=== PATIENT | male | born 1990 | race Caucasian/White ===

== ENCOUNTER 2020-07-25 13:17 | Outpatient (REF) | payer BC, SELFPAY ==
[2020-07-25 21:30] LABS: ALT 53 U/L (16-63); AST 12 U/L (15-37); Alkaline Phosphatase 44 U/L (46-116); Anion Gap 8.7 mmol/L (3-11); BUN 11 mg/dL (7-18); Bilirubin, Total 0.4 mg/dL (0.2-1.0); CO2 28.3 mmol/L (21.0-32.0); CREATININE 1.04 mg/dL (0.70-1.30); Calcium 9.1 mg/dL (8.5-10.1); Chloride 105 mmol/L (98-107); Glucose 100 mg/dL (74-106); Potassium 4.6 mmol/L (3.5-5.1); Sodium 142 mmol/L (136-145); TSH (W/Ref FT4) 1.55 uIU/mL (0.36-3.74); Total Protein 6.9 g/dL (6.4-8.2)
[2020-07-28 07:03] LABS: Vitamin D 25 Total 36.9 ng/ml (30-100)
== END 2020-07-25 13:37 ==
LOC: NCHCN 13:17
PROVIDERS: PCP Nurse Practitioner Family; Visit Provider Nurse Practitioner Psychiatric/Mental Health
DX: F41.1 Generalized anxiety disorder (principal)
CPT/HCPCS: 80053; 82306; 84443

== ENCOUNTER 2024-04-24 18:47 | Observation (INO) | payer SELFPAY ==
[2024-04-24] VITALS (31 sets, daily range): BP systolic 78–135; BP diastolic 53–100; PULSE 86–121; RESP 11–25; TEMP 35.6–36.3; O2SAT 94–98
--- NOTE | 2024-04-24 18:45 | RT.EKG_ITS ---
APPROVED REPORT Exam: Resting ECG Reason for Exam: abd pain Patient Location: E HR:71 bpm ECG Measurements Heart Rate 71 AXIS NH 129 P 83 QRSd 98 QRS 43 QT 361 T 76 QTc 393 Conclusion Sinus rhythm...normal P axis, V-rate 60- 99 Low voltage, extremity leads...all extremity leads <0.5mV Narrow complex normal sinus rhythm at a rate of 71. Normal axis. Intervals within normal limits. L ow voltage in limb leads. No ST segment abnormalities. T wave inversion in aVL. No prior for sourav rison. No acute injury pattern.
--- NOTE | 2024-04-24 19:00 | DI.CT_ITS ---
Exam(s) CT ABDOMEN PELVIS W EXAM: CT ABDOMEN PELVIS W CLINICAL HISTORY: RLQ Abd pain, N/V. TECHNIQUE: Imaging Protocol: Axial computed tomography images with coronal and sagittal reformatted images were created and reviewed CONTRAST MATERIAL: Intravenous: Omnipaque 350 Contrast volume:100 ml Oral: yes / COMPARISON: No exams were available for comparison FINDINGS: ABDOMEN and PELVIS: Lung Bases: Ground-glass infiltrate left lower lobe pneumonitis. Effusion. Liver: Normal density. No suspicious mass. Gallbladder and biliary tract: No radiodense calculus. No biliary dilation. Pancreas: Normal density. No abnormal calcifications or inflammatory process. No evidence of mass. Spleen: Normal. Kidneys: Normal size, contour and axis. No radiodense stones. No obstructive uropathy. No suspicious masses seen. Adrenal glands: No masses seen. Vasculature: Abdominal aorta non-dilated. Soft tissues: Unremarkable. Bladder: No gross wall thickening. No calculi.No focal mass. Bowel: No obstruction. Appendix is dilated to 1.5 cm, shows surrounding inflammation. There is smal l amount of free fluid in the low pelvis. No perforation or abscess. No visible appendicoliths.: Ne matthew free of stool. Peritoneal cavity: No ascites. No focal collection. No mesenteric inflammatory response. Bones: Unremarkable for age. Reproductive organs: Unremarkable. Lymph nodes: No pathologically enlarged lymph nodes. IMPRESSION:: Findings consistent with acute uncomplicated appendicitis. RADIATION DOSE DELIVERED: 1,656.75mGy.cm Total DLP DATA REPOSITORY: All CT scans at this facility are submitted to the National Radiology Data Registry (NRDR) Dose Index Registry (DIR) with the [employer] (A[employer]). RADIATION OPTIMIZATION: All CT scans at this facility use at least one of these dose optimization te chniques: automated exposure control; mA and/or kV adjustment per patient size (includes targeted exa ms where dose is matched to clinical indication); or iterative reconstruction.
[2024-04-24] MEDS: Normal Saline 1,000 ML 1000 ML IV (19:05)
[2024-04-24 19:11] LABS: Abs Immature Grans 0.05 10^3/uL (0.0-0.06); Absolute Basophil Count 0.03 10^3/uL (0.0-0.2); Absolute Eosinophil Count 0.01 10^3/uL (0.0-0.7); Absolute Monocyte Count 0.71 10^3/uL (0.1-0.8); Basophils % 0.2 %; Eosinophils % 0.1 %; HCT 46.5 % (40.0-50.0); HGB 16.5 g/dL (13.5-17.5); Immature Grans % 0.4 %; Lymphocytes % 18.7 %; MCH 30.6 pg (27.0-33.0); MCHC 35.5 % (32.0-36.0); MCV 86 fL (80-95); MPV 9.6 fL (8.0-11.0); Monocytes % 5.4 %; Neutrophils % 75.2 %; Platelet Count 348 10^3/uL (130-400); RDW 11.8 % (11.8-14.1); WBC 13.13 10^3/uL (4.4-10.8)
[2024-04-24 19:12] LABS: Absolute Lymphocyte Count 2.46 10^3/uL (1.2-3.4); Absolute Neutrophil Count 9.87 10^3/uL (1.2-6.7)
--- NOTE | 2024-04-24 19:12 | ED.GENADUL_ITS ---
Discharge Plan Disposition Patient Disposition: Admit to [facility] Condition: Stable Discharge Details Clinical Impression: Acute appendicitis Admit Date/Time: 04/24/24 20:43 Admit Provider: Kraig Chamberlain Attending Provider: Kraig Chamberlain Primary Care Provider: Unknown,Unknown ED Provider: Jessica Feliz [facility] General Mode of arrival: ambulatory . Date/Time Provider Initiated Documentation: 04/24/24 19:00 . Limitations to Documentation: no limitations . Information obtained by: patient, RN notes reviewed and old records reviewed . HPI Narrative: 33-year-old male presents to the ER with a chief complaint of right lower quadrant abdominal pain, nausea vomiting. In triage he was diaphoretic pale lightheaded and dizzy and near syncopal blood pressure was 78/53, he reports that the pain began at 930 this morning. He is complaining of pressure to his lower abdomen, pain in his right testicle, no swelling or signs of torsion. Generalized abdominal pain with palpation, positive guarding. No masses palpated. No significant past medical history or surgeries reported no allergies to medications. In the room patient's blood pressure is improved to 117/64, heart rate is 85 O2 sat is 97% on room air, he is alert and oriented denies any trauma or any other associated symptoms or concerns. Related Data Home Medications Medication Instructions Recorded Confirmed dextroamphetamine-amphetamine 30 30 mg PO DAILY 04/24/24 04/24/24 mg tablet (Adderall) duloxetine 30 mg capsule,delayed 30 mg PO DAILY 04/24/24 04/24/24 release duloxetine 60 mg capsule,delayed 60 mg PO DAILY 04/24/24 04/24/24 release lamotrigine 100 mg tablet 100 mg PO DAILY 04/24/24 04/24/24 lorazepam 2 mg tablet (Ativan) 2 mg PO DAILY PRN 04/24/24 04/24/24 ziprasidone HCl 40 mg capsule 40 mg PO DAILY 04/24/24 04/24/24 (Geodon) Allergies Allergy/AdvReac Type Severity Reaction Status Date / Time No Known Allergies Allergy Unverified 04/24/24 18:58 General Stated Complaint: Abd Prob MARIS: 2 Review of Systems All systems reviewed & are unremarkable except as noted in HPI and below Constitutional Constitutional: Reports as per HPI, Reports body ache(s) and Reports chills Cardiovascular Cardiovascular: Denies chest pain and Denies dyspnea Respiratory Respiratory: Denies dyspnea Gastrointestinal Gastrointestinal: Reports as per HPI and Reports abdominal pain Genitourinary Genitourinary: Reports as per HPI, Reports difficulty urinating, Reports flank pain and Reports testicular pain Exam Narrative Exam Narrative: Constitutional: Alert and oriented x3. See HPI, patient presents in moderate distress, pale, complaining of severe abdominal pain and bloating as he describes as pressure. Had near syncopal episode upon arrival in triage. Head: Normocephalic, no trauma. Eyes: Pupils PERRL, Red reflex noted, EOM's intact. Eyelids symmetrical without lesions, discharge, or swelling. ENT: Bilateral TM's WNL, External ear normal to inspection, no mastoid TTP, swelling, or erythema, Nasal turbinates WNL, no nasal discharge. Normal dentition, Posterior pharynx WNL, no exudate. Chest: RRR, Normal S1, S2, distal pulses intact. Resp: Lungs clear to auscultation bilaterally, no wheezes, rales, or rhonchi. Abdomen: Rigid, generalized diffuse tenderness with palpation, positive guarding, : No palpable hernias or masses, no evidence of testicular torsion, no tenderness, erythema, or swelling noted to scrotum, Musculoskeletal: Unable to assess gait, Moves all 4 extremities without difficulty. Skin: No suspicious rashes or lesions. Capillary refill less than 2 sec. Neurologic: Cranial nerves II-XII intact. Alert and oriented x 3. Motor: No deficits noted. Sensory: Intact bilaterally all 4 extremities. Hematologic/Lymphatic: No ecchymosis, no lymphadenopathy. Course Vital Signs Vital signs: Vital Signs Temperature 36 C L 04/24/24 18:50 Pulse 86 04/24/24 18:50 Respiratory Rate 04/24/24 18:50 Blood Pressure 78/53 L 04/24/24 18:50 Pulse Oximetry 98 04/24/24 18:50 Temperature 36 C L 04/24/24 18:50 Temperature Source Temporal Artery Scan 04/24/24 18:50 Pulse 86 04/24/24 18:50 Respiratory Rate 04/24/24 18:50 Respiratory Effort Normal 04/24/24 18:53 Blood Pressure 78/53 L 04/24/24 18:50 Pulse Oximetry 98 04/24/24 18:50 Oxygen Delivery Method Room Air 04/24/24 18:50 Oxygen Flow Rate 0 04/24/24 18:50 Pain Level 8 04/24/24 18:50 Lab/Test Results Lab/Test Results: Laboratory Tests Range/Units 04/24/24 19:05 WBC (4.4-10.8) 10^3/uL 13.13 H RBC (4.36-5.78) 10^6/uL 5.40 Hgb (13.5-17.5) g/dL 16.5 Hct (40.0-50.0) % 46.5 MCV (80-95) fL 86 MCH (27.0-33.0) pg 30.6 MCHC (32.0-36.0) % 35.5 RDW (11.8-14.1) % 11.8 Plt Count (130-400) 10^3/uL 348 MPV (8.0-11.0) fL 9.6 Immature Gran % % 0.4 Neutrophils % % 75.2 Lymphocytes % % 18.7 Monocytes % % 5.4 Eosinophils % % 0.1 Basophils % % 0.2 Nucleated RBC % (0.0-0.3) % 0.0 Absolute Neutrophils (1.2-6.7) 10^3/uL 9.87 H Absolute Lymphocytes (1.2-3.4) 10^3/uL 2.46 Absolute Monocytes (0.1-0.8) 10^3/uL 0.71 Absolute Eosinophils (0.0-0.7) 10^3/uL 0.01 Absolute Basophils (0.0-0.2) 10^3/uL 0.03 Medical Decision Making 33-year-old male presents to the ER with a chief complaint of right lower quadrant abdominal pain, nausea vomiting. In triage he was diaphoretic pale lightheaded and dizzy and near syncopal blood pressure was 78/53, he reports that the pain began at 930 this morning. He is complaining of pressure to his lower abdomen, pain in his right testicle, no swelling or signs of torsion. Generalized abdominal pain with palpation, positive guarding. No masses palpated. No significant past medical history or surgeries reported no allergies to medications. In the room patient's blood pressure is improved to 117/64, heart rate is 85 O2 sat is 97% on room air, he is alert and oriented denies any trauma or any other associated symptoms or concerns. Workup ordered including CBC CMP, lipase, urinalysis CT abdomen pelvis with contrast, liter of fluid and 50 of fentanyl and 4 Zofran. Differential diagnosis includes but not limited to UTI, sepsis, surgical abdomen, appendectomy, kidney stone, testicular torsion however no torsion noted on physical exam. Informed by administrative staff supervisor after the initial 50 mcg of fentanyl that patient is still complaining of diffuse abdominal pain. An additional 25 mics for a total of 75 mcg of fentanyl IV ordered. On patient reevaluation he is complaining of chills, and rigors. Lactate, BC x 2 ordered, Type and screen and Pt, INR, PTT added on to labs. call center rn Surgery paged 1999. Spoke with radiologist with [facility] Dr. Kraig Contreras who reports acute appendicitis measuring 15 mm with wall thickening and inflammatory fat stranding and fluid. Please see official report. Will repage surgery. 2041: Spoke with Dr. Chamberlain with general surgery discussed CT results he does not recommend Zosyn to be hung at this time. I did inform administrative staff supervisor and infusion was stopped. Discussed CT results with patient and family who verbalized understanding. I did discuss n.p.o. status patient last ate a meal last night. He did have sips of water prior to arrival. He does appear more comfortable at this time. Patient to be admitted into the care of general surgery, pending bed placement at this time. Instructed on plan of care he verbalized understanding. This text was generated using [employer] dictation system, please disregard any oddities of phrase or misspellings. Imaging Data Radiologic Study: Imaging: CT Scan Radiologist's impression: [facility] Radiology report: TECHNIQUE: Imaging protocol: Computed tomography of the abdomen and pelvis with contrast. Contrast material: OMNIPAQUE 350; Contrast volume: 100 ml; Contrast route: INTRAVENOUS (IV); COMPARISON: No relevant prior studies available. FINDINGS: Lungs: Minimal ground-glass opacities within the left lower lobe, likely areas of minimal pneumonitis. Diaphragm: Small size hiatal hernia. Liver: Normal. Gallbladder and bile ducts: Normal. Pancreas: Normal. Spleen: Normal. Adrenal glands: Normal. No mass. Kidneys and ureters: Nonobstructive right nephrolithiasis. Stomach and bowel: Normal. Appendix: Appendix abnormal, measuring 15 mm in maximum diameter, with wall thickening and adjacent associated inflammatory fat stranding and fluid. Appendix located in conventional position. No perforation or abscess. Intraperitoneal space: Unremarkable. No free air. No significant fluid collection. Vasculature: Unremarkable. No abdominal aortic aneurysm. Lymph nodes: Unremarkable. No enlarged lymph nodes. Urinary bladder: Unremarkable as visualized. Reproductive: Unremarkable as visualized. Bones/joints: No acute abnormality. Soft tissues: Normal. IMPRESSION: 1. Acute appendicitis, without evidence of perforation or abscess. 2. Minimal ground-glass opacities within the left lower lobe, likely areas of minimal pneumonitis. Thank you for allowing us to participate in the care of your patient. Dictated and Authenticated by: Kraig Contreras MD 04/24/2024 8:29 PM Eastern Time ([place] & [place]) Lab Data Lab results reviewed: Yes I reviewed the patient's lab results. Labs: 04/24/24 19:53 Blood Blood Culture - Pending 04/24/24 19:53 Blood Blood Culture - Pending Laboratory Tests Range/Units 04/24/24 04/24/24 19:03 19:05 WBC (4.4-10.8) 10^3/uL 13.13 H RBC (4.36-5.78) 10^6/uL 5.40 Hgb (13.5-17.5) g/dL 16.5 Hct (40.0-50.0) % 46.5 MCV (80-95) fL 86 MCH (27.0-33.0) pg 30.6 MCHC (32.0-36.0) % 35.5 RDW (11.8-14.1) % 11.8 Plt Count (130-400) 10^3/uL 348 MPV (8.0-11.0) fL 9.6 Immature Gran % % 0.4 Neutrophils % % 75.2 Lymphocytes % % 18.7 Monocytes % % 5.4 Eosinophils % % 0.1 Basophils % % 0.2 Nucleated RBC % (0.0-0.3) % 0.0 Absolute Neutrophils (1.2-6.7) 10^3/uL 9.87 H Absolute Lymphocytes (1.2-3.4) 10^3/uL 2.46 Absolute Monocytes (0.1-0.8) 10^3/uL 0.71 Absolute Eosinophils (0.0-0.7) 10^3/uL 0.01 Absolute Basophils (0.0-0.2) 10^3/uL 0.03 PT (9.1-11.1) sec 10.5 INR (0.9-1.1) 1.0 APTT (23.6-32.8) sec 24.3 Sodium (136-145) mmol/L 139 Potassium (3.5-5.1) mmol/L 3.8 Chloride (98-107) mmol/L 102 Carbon Dioxide (21.0-32.0) mmol/L 27.0 Anion Gap (3-11) mmol/L 10.0 BUN (7-18) mg/dL 16 Creatinine (0.70-1.30) mg/dL 1.7 H Est GFR (CKD-EPI 2020) (mL/min/1.73m2) 53.91 Glucose (74-106) mg/dL 143 H Calcium (8.5-10.1) mg/dL 9.1 Magnesium (1.8-2.4) mg/dL 1.6 L Total Bilirubin (0.2-1.0) mg/dL 0.6 AST (15-37) U/L 15 ALT (16-63) U/L 53 Alkaline Phosphatase (46-116) U/L 54 Total Protein (6.4-8.2) g/dL 7.9 Albumin (3.4-5.0) g/dL 4.2 Lipase (16-77) U/L 26 Quality:[facility] Related Social Needs: No Data to Display Critical Care Time Critical Care Time Critical Care Time: Yes Total Critical Care Time: 45 Attestation: I spent greater than 35 minutes addressing this patient's acute life threatening illness. This time was spent engaged in actions directly related to the patient's care. Failure to initiate these interventions would have likely resulted in clinically significant or life threatening deterioration in the patients condition. PFSH All Active Problems (Updated 04/24/24 @ 20:43 by Jessica Feliz NP) Acute appendicitis (Acute) Social History Smoking risk assessment performed?: No Housing: apartment
[2024-04-24] MEDS: Ondansetron 4 MG/2 ML VIAL IVP ×2 (19:16→22:26)
[2024-04-24] MEDS: fentaNYL 100 MCG/2 ML VIAL 50 MCG IVP (19:16)
[2024-04-24] MEDS: Omnipaque 350 MG/ML 100 ML BTL IJ (19:24)
[2024-04-24 19:25] LABS: ALT 53 U/L (16-63); AST 15 U/L (15-37); Albumin 4.2 g/dL (3.4-5.0); Alkaline Phosphatase 54 U/L (46-116); BUN 16 mg/dL (7-18); Bilirubin, Total 0.6 mg/dL (0.2-1.0); CREATININE 1.7 mg/dL (0.70-1.30); Calcium 9.1 mg/dL (8.5-10.1); Chloride 102 mmol/L (98-107); Estimated GFR 53.91 (mL/min/1.73m2); Glucose 143 mg/dL (74-106); Lipase 26 U/L (16-77); Magnesium 1.6 mg/dL (1.8-2.4); Potassium 3.8 mmol/L (3.5-5.1); Sodium 139 mmol/L (136-145); Total Protein 7.9 g/dL (6.4-8.2)
[2024-04-24] MEDS: Normal Saline - Diluent 50 ML VIAL IJ (19:26)
[2024-04-24] MEDS: fentaNYL 100 MCG/2 ML VIAL 25 MCG IVP (19:53)
[2024-04-24] MEDS: PIPERACILLIN/TAZO 3.375 GM in Normal Saline 50 ML IVPB (20:05)
[2024-04-24] MEDS: Normal Saline Flush 10 ML SYR IVP ×2 (20:05→23:26)
[2024-04-24 20:10] LABS: PTT Activated 24.3 sec (23.6-32.8); Prothrombin Time 10.5 sec (9.1-11.1)
--- NOTE | 2024-04-24 20:29 | DI.[facility]_ITS ---
Addendum created by Kraig Contreras MD on 04/24/2024 8:33:13 PM EDT: THIS REPORT CONTAINS FINDINGS THAT MAY BE CRITICAL TO PATIENT CARE. The findings were verbally communicated by me to MAXINE SPARKS via telephone conference at 8:33 PM EDT on 04/24/2024. The findings were acknowledged and understood. Initial report created on 04/24/2024 8:29:20 PM EDT: PROCEDURE INFORMATION: Exam: CT Abdomen And Pelvis With Contrast Exam date and time: 04/24/2024 7:28 PM Age: 33 years old Clinical indication: Abdominal pain; Localized; Right lower quadrant (rlq) TECHNIQUE: Imaging protocol: Computed tomography of the abdomen and pelvis with contrast. Contrast material: OMNIPAQUE 350; Contrast volume: 100 ml; Contrast route: INTRAVENOUS (IV); COMPARISON: No relevant prior studies available. FINDINGS: Lungs: Minimal ground-glass opacities within the left lower lobe, likely areas of minimal pneumonitis. Diaphragm: Small size hiatal hernia. Liver: Normal. Gallbladder and bile ducts: Normal. Pancreas: Normal. Spleen: Normal. Adrenal glands: Normal. No mass. Kidneys and ureters: Nonobstructive right nephrolithiasis. Stomach and bowel: Normal. Appendix: Appendix abnormal, measuring 15 mm in maximum diameter, with wall thickening and adjacent associated inflammatory fat stranding and fluid. Appendix located in conventional position. No perforation or abscess. Intraperitoneal space: Unremarkable. No free air. No significant fluid collection. Vasculature: Unremarkable. No abdominal aortic aneurysm. Lymph nodes: Unremarkable. No enlarged lymph nodes. Urinary bladder: Unremarkable as visualized. Reproductive: Unremarkable as visualized. Bones/joints: No acute abnormality. Soft tissues: Normal. IMPRESSION: 1. Acute appendicitis, without evidence of perforation or abscess. 2. Minimal ground-glass opacities within the left lower lobe, likely areas of minimal pneumonitis. Dictated and Authenticated by: Kraig Contreras MD. Ordering:CLEM Lopez MD
--- NOTE | 2024-04-24 20:46 | W.SURGCON ---
Date of service: 04/24/24 Time of Service: 20:47 Assessment and Plan Assessment and plan (1) Acute appendicitis: Status: Acute Assessment and plan: 33 yo man with acute appendicitis by history and radiographically. HD stable per report and without diffuse peritonitis. CT shows no evidence of perforation. PLAN: Observation, IVF and IV Abx Laparoscopic Appendectomy in the AM History of Present Illness Narrative: HPI per ED provider - pain started this morning. Worsening. RLQ. PFSH All Active Problems (Updated 04/24/24 @ 20:43 by Jessica Feliz NP) Acute appendicitis (Acute) Social History Smoking risk assessment performed?: No Exam Narrative Exam Narrative: Per ED provider Vitals: Stable after resuscitation and pain medication Gen: Nontoxic but uncomfortable Abdomen: Soft, but focally tender RLQ Results Last Vital Signs Temp 96.8 F L 04/24/24 18:50 Pulse 114 H 04/24/24 19:52 Resp 16 04/24/24 19:52 BP 121/100 H 04/24/24 19:52 Pulse Ox 98 04/24/24 19:52 Labs 04/24/24 19:05 04/24/24 19:05 Labs: Laboratory Results - last 24 hr 04/24/24 04/24/24 19:03 19:05 WBC 13.13 H RBC 5.40 Hgb 16.5 Hct 46.5 MCV 86 MCH 30.6 MCHC 35.5 RDW 11.8 Plt Count 348 MPV 9.6 Immature Gran % 0.4 Neutrophils % 75.2 Lymphocytes % 18.7 Monocytes % 5.4 Eosinophils % 0.1 Basophils % 0.2 Nucleated RBC % 0.0 Absolute Neutrophils 9.87 H Absolute Lymphocytes 2.46 Absolute Monocytes 0.71 Absolute Eosinophils 0.01 Absolute Basophils 0.03 PT 10.5 INR 1.0 APTT 24.3 Sodium 139 Potassium 3.8 Chloride 102 Carbon Dioxide 27.0 Anion Gap 10.0 BUN 16 Creatinine 1.7 H Est GFR (CKD-EPI 2020) 53.91 Glucose 143 H Calcium 9.1 Magnesium 1.6 L Total Bilirubin 0.6 AST 15 ALT 53 Alkaline Phosphatase 54 Total Protein 7.9 Albumin 4.2 Lipase 26
[2024-04-24] MEDS: Ketorolac 15 MG/ML VIAL IVP (21:51)
[2024-04-24] MEDS: ACETAMINOPHEN 1,000 MG/100 ML BTL 400 MG IVPB (21:52)
[2024-04-24] MEDS: MORPHine 2 MG/ML SYR IVP ×2 (22:22→23:25)
[2024-04-24] MEDS: Lactated Ringers 1,000 ML 135 ML IV (22:31)
[2024-04-24 22:54] LABS: Bilirubin Negative (Negative); Blood Trace-intact (Negative); Clarity Clear (Clear); Glucose Negative (Negative); Ketones 40 mg/dL (Negative); Leukocyte Esterase Negative (Negative); Nitrite Negative (Negative); Specific Gravity <= 1.005 (1.005-1.025); Urobilinogen 0.2 mg/dL (Up to 0.2)
[2024-04-24 23:06] LABS: Bacteria Rare HPF (Negative); C & S Indicated? No; Casts Negative LPF (Negative); Crystals Negative HPF (Negative); Epithelial Cells Negative HPF (Negative); Mucus Negative (Negative); RBC Negative HPF (0-2); WBC Negative HPF (0-5)
[2024-04-24] MEDS: Heparin 5,000 UNITS/ML VIAL 5000 UNITS SC (23:25)
[2024-04-25] VITALS (35 sets, daily range): BP systolic 87–164; BP diastolic 51–129; PULSE 75–132; RESP 11–37; TEMP 35.8–37.5; O2SAT 90–99; BMI 39.1
[2024-04-25] MEDS: MORPHine 2 MG/ML SYR IVP (01:19)
[2024-04-25] MEDS: Normal Saline Flush 10 ML SYR IVP ×7 (01:20→19:37)
[2024-04-25] MEDS: Ketorolac 15 MG/ML VIAL 30 MG IVP ×3 (02:52→15:19)
[2024-04-25] MEDS: PIPERACILLIN/TAZO 3.375 GM in Normal Saline 50 ML IVPB ×2 (03:00→10:44)
[2024-04-25] MEDS: ACETAMINOPHEN 1,000 MG/100 ML BTL 400 MG IVPB ×4 (04:50→23:30)
[2024-04-25] MEDS: Lactated Ringers 1,000 ML 150 ML IV ×2 (06:16→18:31)
[2024-04-25] MEDS: HYDROmorphone 2 MG/ML SYR 0.5 MG IVP ×2 (06:25→07:50)
[2024-04-25] MEDS: Heparin 5,000 UNITS/ML VIAL 5000 UNITS SC ×2 (07:50→16:42)
--- NOTE | 2024-04-25 08:38 | PGE_ITS ---
Date of Service Date of service: 04/25/24 Time of Service: 08:39 Assessment and Plan Assessment and plan (1) Acute appendicitis: Status: Acute Assessment and plan: 33-year-old male with acute appendicitis. He is hemodynamically stable. He is focal peritoneal signs in the right lower quadrant as expected with the diagnosis. I discussed with anesthesia this morning. He can take all of his oral home medications before his surgery. Overall plan: DVT prophylaxis IV antibiotics Analgesia as needed (not working very well because of all of his home medications probably) Laparoscopic appendectomy in a couple of hours Subjective Subjective Interval history since last seen: Overnight patient reports his pain has not been controlled. The pain medication simply does not help or change anything. He describes all of his pain in the right lower quadrant only. Him and his family are requesting to take all of his oral home medications this morning. He says that if he does not, his depression and mental issues come on strong. Exam Narrative Exam Narrative: General: Nontoxic, comfortable and interactive. He converses and does not appear to be in any distress. Neuro: Alert and oriented x 3 Psych: Good mood and affect at this time, seemingly good insight and understanding into his condition Heart: Regular Chest: Nonlabored breathing Abdomen: Soft, nondistended, focal Tenderness in the right lower quadrant only. The other 3 quadrants are nontender. Objective Last Vital Signs Temp 97.5 F L 04/25/24 07:35 Pulse 102 H 04/25/24 07:35 Resp 18 04/25/24 07:35 BP 121/82 04/25/24 07:35 Pulse Ox 95 04/25/24 07:35 Laboratory Results - last 24 hr 04/24/24 04/24/24 04/24/24 19:03 19:05 20:45 WBC 13.13 H RBC 5.40 Hgb 16.5 Hct 46.5 MCV 86 MCH 30.6 MCHC 35.5 RDW 11.8 Plt Count 348 MPV 9.6 Immature Gran % 0.4 Neutrophils % 75.2 Lymphocytes % 18.7 Monocytes % 5.4 Eosinophils % 0.1 Basophils % 0.2 Nucleated RBC % 0.0 Absolute Neutrophils 9.87 H Absolute Lymphocytes 2.46 Absolute Monocytes 0.71 Absolute Eosinophils 0.01 Absolute Basophils 0.03 PT 10.5 INR 1.0 APTT 24.3 VBG Lactate Sodium 139 Potassium 3.8 Chloride 102 Carbon Dioxide 27.0 Anion Gap 10.0 BUN 16 Creatinine 1.7 H Est GFR (CKD-EPI 2020) 53.91 Glucose 143 H Calcium 9.1 Magnesium 1.6 L Total Bilirubin 0.6 AST 15 ALT 53 Alkaline Phosphatase 54 Total Protein 7.9 Albumin 4.2 Lipase 26 Urine Color Urine Clarity Urine pH Ur Specific [place] Urine Protein Urine Ketones Urine Blood Urine Nitrite Urine Bilirubin Urine Urobilinogen Ur Leukocyte Esterase Urine RBC Urine WBC Ur Epithelial Cells Urine Crystals Urine Bacteria Urine Casts Urine Mucus Ur Culture Indicated? Urine Glucose ABO/Rh A Negative Antibody Screen NEGATIVE 04/24/24 04/24/24 21:03 22:45 WBC RBC Hgb Hct MCV MCH MCHC RDW Plt Count MPV Immature Gran % Neutrophils % Lymphocytes % Monocytes % Eosinophils % Basophils % Nucleated RBC % Absolute Neutrophils Absolute Lymphocytes Absolute Monocytes Absolute Eosinophils Absolute Basophils PT INR APTT VBG Lactate 1.0 Sodium Potassium Chloride Carbon Dioxide Anion Gap BUN Creatinine Est GFR (CKD-EPI 2020) Glucose Calcium Magnesium Total Bilirubin AST ALT Alkaline Phosphatase Total Protein Albumin Lipase Urine Color Yellow Urine Clarity Clear Urine pH 6.0 Ur Specific [place] <= 1.005 Urine Protein 30 H Urine Ketones 40 H Urine Blood Trace-intact H Urine Nitrite Negative Urine Bilirubin Negative Urine Urobilinogen 0.2 Ur Leukocyte Esterase Negative Urine RBC Negative Urine WBC Negative Ur Epithelial Cells Negative Urine Crystals Negative Urine Bacteria Rare Urine Casts Negative Urine Mucus Negative Ur Culture Indicated? No Urine Glucose Negative ABO/Rh Antibody Screen PAWSS Have you Been Recently Intoxicated or Drunk Within the Last 30 days?: No Have you Ever Experienced Previous Episodes of Alcohol Withdrawal?: No Have you ever Experienced Withdrawal Seizures?: No Have you ever Experienced Delirium Tremens(DT)s?: No Have you ever undergone Alcohol Rehabilitation Treatment (i.e, inpt ot outpatient treatment programs)?: No Have you ever Experienced Blackouts?: No Have you ever Combined Alcohol with other Downers within the last 90 days?: No Have you ever Combined Alcohol with any other Substance of Abuse during the last 90 days?: No Positive Blood Alcohol level on Presentation? [PCS.BAL]: No Evidence of Increased Autonomic Activity (i.e. HR>120, tremor, sweating, agitation, nausea)?: No Result: 0 Time Spent with Patient Time Spent with Patient: <25 minutes Time was spent: preparing to see the patient(eg.review tests), indepentently interpreting results, counseling the patient and care coordination
--- NOTE | 2024-04-25 09:51 | PDOC.CMIN ---
Date of service: 04/25/24 Time of Service: 09:51 Care Management Initial Assmt Initial Assessment Reason for Hospitalization: appendicitis Functional Status/Living Situation Patient Presentation: Jose Alfredo was in the OR when CM attempted to meet with him. His mother was in the room waiting and was able to provide some information.She informed CM that Jose Alfredo does not have insurance and that they were advised to contact [employer] for assistance. When Jose Alfredo has returned from surgery and is awake, CM will ask if he would like a referral sent. Town of Residence: [place] Resides with: Other (lives with his girlfriend) Significant Other/Family: Local Natural Supports: Jose Alfredo has 3 children that he sees every other weekend. 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.) Instrumental Activities of Daily Living (ADLs): Independent Medications Medication Management: No Issues/Barriers identified Physical Functioning/Mobility Assistive Device: none Advance Directives Advance Directives: Do you have an Advance Directive: N 10/22/15 09:43 AD On File at [facility]: N 10/22/15 09:43 Date Asked 04/24/24 04/24/24 21:03 AD Date Reviewed COLST On File at [facility] COLST Date Scanned Code Status Resuscitation Status Full Code Portal Pt does not currently have a portal and education provided: No Insurance Coverage/Financial Issues Insurance: self pay ACO Member: No Financial Issues: Jose Alfredo is currently uninsured. per Mom, he has been told to contact [employer] for assistance. CM also offered to provide an [facility] Financial Assistance packet. Care Team Visit Care Team Role Provider Type Unknown Unknown Primary Care Provider STAFF PHYSICIAN Jessica Feliz NP Emergency Provider NURSE PRACTITIONER Kraig Chamberlain MD Admit Provider [facility] STAFF PHYSICIAN Attending Provider Discharge Potential Discharge Needs: Surgical F/U Appt and Other (Insurance) Anticipated Barriers to Discharge: None Identified Patient/Family Education Needs: Review discharge instructions, discuss Ask Me Three Transportation: Private vehicle Plan: Anticipate Jose Alfredo will be discharged home with no new services when stable. He will follow up with his surgeon and plan of care and transport with nathalia. CM will follow and support discharge needs. PFSH All Active Problems (Updated 04/24/24 @ 20:43 by Jessica Feliz NP) Acute appendicitis (Acute) Surgical History (Updated 04/25/24 @ 15:34 by Reema Lucio) Hx of appendectomy (~04/2024) Social History Smoking risk assessment performed?: No Housing: apartment SDOH(Care Management) Screening Will the Patient Participate in the Screening?: Declined to provide Do you worry about having a steady place to live?: no
--- NOTE | 2024-04-25 11:55 | ANES.PREOP_ITS ---
General Info Date of Service Date Performed: 04/25/24 Height: 5 ft 7 in Weight: 113.398 kg Body Mass Index (BMI): 39.1 Surgical Procedure: Operation Date: 04/25/24 12:40 Proposed Procedure Side Surgeon p Appendectomy Laparoscopic Kraig Chamberlain MD Meds Allergies and Home Medications Allergies Allergy/AdvReac Type Severity Reaction Status Date / Time No Known Allergies Allergy Unverified 04/24/24 18:58 Home Medication Medication Instructions Recorded duloxetine 30 mg capsule,delayed 30 mg PO DAILY 04/24/24 release duloxetine 60 mg capsule,delayed 60 mg PO DAILY 04/24/24 release lamotrigine 100 mg tablet 100 mg PO DAILY 04/24/24 ziprasidone HCl 40 mg capsule 40 mg PO DAILY 04/24/24 (Geodon) dextroamphetamine-amphetamine ER 30 mg PO DAILY 04/25/24 30 mg 24hr capsule,extend release lorazepam 1 mg tablet 1 mg PO Q12H PRN 04/25/24 olanzapine 10 mg tablet 10 mg PO QPM 04/25/24 Current Visit Medications: Current Medications Generic Name Dose Route Start Last Admin Trade Name Freq PRN Reason Stop Dose Admin Amphetamine Aspartate/Amphetam Sulf 30 mg 04/26/24 08:30 Amphet Asp/Amphet/D-Amphet 10mg Capcr PO DAILY MAURICIO Duloxetine HCl 90 mg 04/26/24 08:30 Duloxetine 30 Mg Cap PO DAILY MAURICIO Heparin Sodium (Porcine) 5,000 units 04/25/24 00:00 04/25/24 07:50 Heparin 5,000 Units/Ml Vial SC 5,000 units Q8H MAURICIO Administration Hydromorphone HCl 0.5 mg 04/25/24 02:19 04/25/24 07:50 Hydromorphone 2 Mg/Ml Syr IVP 0.5 mg Q2H PRN PRN Administration Ringer's Solution 1,000 mls @ 150 mls/hr 04/24/24 20:45 04/25/24 06:16 IV 150 mls/hr INFUSION MAURICIO Administration Acetaminophen 1,000 mg in 100 mls @ 400 mls/hr 04/25/24 04:00 04/25/24 10:42 Ofirmev IVPB 400 mls/hr Q6H MAURICIO Administration Piperacillin Sod/Tazobactam 50 mls @ 100 mls/hr 04/25/24 04:00 04/25/24 10:44 Sod 3.375 gm/ Sodium Chloride IVPB 100 mls/hr Q6H MAURICIO Administration IV Miscellaneous Supplies 1 each 04/24/24 20:45 Iv Access IV DIRECTED MAURICIO Ketorolac Tromethamine 30 mg 04/25/24 02:30 04/25/24 08:21 Ketorolac 15 Mg/Ml Vial IVP 04/30/24 02:29 30 mg Q6H PRN PRN Administration Lamotrigine 100 mg 04/26/24 08:30 Lamotrigine 100 Mg Tab PO DAILY MAURICIO Lorazepam 1 mg 04/25/24 09:04 Lorazepam 1 Mg Tab PO Q12H PRN PRN Morphine Sulfate 2 mg 04/24/24 20:43 04/25/24 01:19 Morphine 2 Mg/Ml Syr IVP 2 mg Q1H PRN PRN Administration Olanzapine 10 mg 04/25/24 20:00 Olanzapine 10 Mg Tab PO QPM MAURICIO Ondansetron HCl 4 mg 04/24/24 20:43 04/24/24 22:26 Ondansetron 4 Mg/2 Ml Vial IVP 4 mg Q4H PRN PRN Administration Sodium Chloride 0 ml 04/24/24 19:00 04/25/24 10:42 Normal Saline Flush 10 Ml Syr IVP 10 ml PRN PRN Administration Sodium Chloride 0 ml 04/24/24 20:00 04/25/24 07:48 Normal Saline Flush 10 Ml Syr IVP 10 ml BID MAURICIO Administration Sodium Chloride 0 ml 04/24/24 19:00 Normal Saline 10 Ml Vial IJ DIRECTED PRN Ziprasidone 80 mg 04/26/24 09:00 Ziprasidone 40 Mg Cap PO BID PC MAURICIO PFSH Active Problems Active Problems: Problem Status Onset Code Acute appendicitis K35.80 Vital Signs and Lab Results Vital Signs Most Recent Vital Signs in EMR: Most Recent Vital Signs Temp Pulse Resp BP Pulse Ox 36.4 C L 102 H 18 121/82 95 04/25/24 07:35 04/25/24 07:35 04/25/24 07:35 04/25/24 07:35 04/25/24 07:35 Lab Results 04/24/24 19:05 04/24/24 19:05 Blood Type / Crossmatch: 2 Antibody Screen NEGATIVE 04/24/24 Complete Blood Count: 2 White Blood Count 13.13 10^3/uL (4.4-10.8) H 04/24/24 19:05 Red Blood Count 5.40 10^6/uL (4.36-5.78) 04/24/24 19:05 Hemoglobin 16.5 g/dL (13.5-17.5) 04/24/24 19:05 Hematocrit 46.5 % (40.0-50.0) 04/24/24 19:05 Platelet Count 348 10^3/uL (130-400) 04/24/24 19:05 Venous Blood Lactate 1.0 mmol/L (0.6-1.4) 04/24/24 21:03 Complete Metabolic Panel: 2 Sodium 139 mmol/L (136-145) 04/24/24 19:05 Potassium 3.8 mmol/L (3.5-5.1) 04/24/24 19:05 Chloride 102 mmol/L (98-107) 04/24/24 19:05 Carbon Dioxide 27.0 mmol/L (21.0-32.0) 04/24/24 19:05 BUN 16 mg/dL (7-18) 04/24/24 19:05 Creatinine 1.7 mg/dL (0.70-1.30) H 04/24/24 19:05 Est GFR (CKD-EPI 2020) 53.91 (mL/min/1.73m2) 04/24/24 19:05 Magnesium 1.6 mg/dL (1.8-2.4) L 04/24/24 19:05 Calcium 9.1 mg/dL (8.5-10.1) 04/24/24 19:05 Albumin 4.2 g/dL (3.4-5.0) 04/24/24 19:05 Glucose 143 mg/dL (74-106) H 04/24/24 19:05 Liver Function Panel: 2 Alanine Aminotransferase (ALT/SGPT) 53 U/L (16-63) 04/24/24 19: 05 Aspartate Amino Transf (AST/SGOT) 15 U/L (15-37) 04/24/24 19:05 Coagulation Panel: 2 INR International Normalized Ratio 1.0 (0.9-1.1) 04/24/24 19:0 3 Prothrombin Time 10.5 sec (9.1-11.1) 04/24/24 19:03 Activated Partial Thromboplast Time 24.3 sec (23.6-32.8) 19:03 Cardiac Panel: 2 No Data to Display Arterial Blood Gas: 2 No Data to Display Venous Blood Gas: 2 No Data to Display Pancreas Panel: 2 Lipase 26 U/L (16-77) 04/24/24 19:05 Thyroid Panel: 2 No Data to Display Infectious Disease: 2 No Data to Display Blood Cultures: 2 No Data to Display Toxicology Panel: 2 No Data to Display Imaging and Studies Imaging and Studies Study information below may be from another EMR and interpreted by another provider. Please see original notes in EMR for more complete details. EKG Summary: EKG PATIENT NAME: Jose Alfredo Duong UNIT #: [id number] ORDERING PROVIDER: Yobani Abbott M.D. PRIMARY CARE PROVIDER: UNKNOWN,UNKNOWN DATE/TIME OF SERVICE: 04/24/24 1857 : 1990 PERFORMING LOCATION: ER APPROVED REPORT Exam: Resting ECG Reason for Exam: abd pain Patient Location: E HR:71 bpm ECG Measurements Heart Rate 71 AXIS NJ 129 P 83 QRSd 98 QRS 43 QT 361 T76 QTc 393 Conclusion Sinus rhythm...normal P axis, V-rate 60- 99 Low voltage, extremity leads...all extremity leads <0.5mV Narrow complex normal sinus rhythm at a rate of 71. Normal axis. Intervals within normal limits. Low voltage in limb leads. No ST segment abnormalities. T wave inversion in aVL. No prior for comparison. No acute injury pattern. - <Electronically signed by Yobani Abbott M.D. in OV> E-Sign Date: 04/24/24 E-Sign Time: 2204 Anesthesia Assessment and Plan Anesthesia History Personal History: No History of General Anesthesia Family History: No Family History of Anesthesia Complications Exercise Tolerance Exercise Tolerance: Metabolic Equivalents>4 Pertinent Negatives Pertinent Negatives: No Symptoms of GERD, No Major Cardiovascular Symptoms or Complaints, No Major Pulmonary Symptoms or Complaints and No History of CVA/TIA Cardiac & Pulmonary Exam Cardiac Exam: Normal S1/S2 Heart Sounds Pulmonary Exam: Clear Bilateral Breath Sounds Implantable Cardiac Device Does patient have a Pacemaker or an ICD?: No Airway Exam Known Difficult Airway: No Mallampati Class: 2 Mouth Opening: Normal (> 3cm) Thyromental Distance: Greater than 3 cm Neck Range of Motion: Full ROM Neck Circumference: Normal Teeth Condition: Normal Dentition ASA Classification ASA Score: ASA 2 Emergency Case?: No NPO Status NPO Status: NPO Clears >2 hours, Solids >8 hours Anesthesia Plan Resuscitation Status: Full Code Anesthesia Technique: General Anesthesia Airway Planned: Endotracheal Tube Monitors Used: Standard Monitors
--- NOTE | 2024-04-25 12:38 | NUR.NOTE ---
Nursing Note: Brought Pt down to OR with IV fluids running.
--- NOTE | 2024-04-25 13:54 | PHA.REVIEW2 ---
Pharmacy Admission Review Admission Clinical Review Admission Pharmacy Review: Acute appendicitis (Acute) No Known Allergies Allergy (Unverified 04/24/24 18:58) Resuscitation Status Full Code Height 5 ft 7 in Weight 113.398 kg Pharmacy Admission Review Renal Dosing Renal Dosing: BUN 16 mg/dL (7-18) 04/24/24 19:05 Creatinine 1.7 mg/dL (0.70-1.30) H 04/24/24 19:05 Medications needing adjustments: Reviewed (CrCl 74.32 mL/min) List of meds needing interventions: Current medications are okay Anticoagulation Anticoagulation: Hgb 16.5 g/dL (13.5-17.5) 04/24/24 19:05 Hct 46.5 % (40.0-50.0) 04/24/24 19:05 Plt Count 348 10^3/uL (130-400) 04/24/24 19:05 INR 1.0 (0.9-1.1) 04/24/24 19:03 Creatinine 1.7 mg/dL (0.70-1.30) H 04/24/24 19:05 DVT Prophylaxis: Reviewed Medications: Heparin (q8h) Opiate Usage Evaluate Pain Scale/Pains Meds: Reviewed (PRN IVP hydromorphone) Scheduled Bowel Reg ordered if on Opiates?: No Relevant Labs Relevant Labs: Sodium 139 mmol/L (136-145) 04/24/24 19:05 Potassium 3.8 mmol/L (3.5-5.1) 04/24/24 19:05 Chloride 102 mmol/L (98-107) 04/24/24 19:05 Magnesium 1.6 mg/dL (1.8-2.4) L 04/24/24 19:05 Electrolytes, C-Reactive P, ESR: Reviewed (No new labs for today) Cardiac Review BP, HR, EF%: Reviewed (BP WNL, HR 98) QTc Review QTc: Reviewed (393 from 04/24/24) IV to PO Switch IV Medications: Reviewed (NPO for procedure today) Home Meds Home Med List reviewed: Reviewed Current Meds Current Medication Order Review: Reviewed Pharmacy Antibiotic Review Relevant Labs: WBC 13.13 10^3/uL (4.4-10.8) H 04/24/24 19:05 Temperature 37.5 C Temperature 36.4 C Comments: Patient is on Zosyn 3.375g q6h for acute appendicitis. Laparoscopic appendectomy scheduled for today. Blood cultures are pending.
--- NOTE | 2024-04-25 13:55 | APP_PTH ---
PATIENT: Jose Alfredo Duong LOC: U#:[id number] AGE/SX: 33/M ROOM: 215 RE04/24/[address]: Kraig Chamberlain : 1990 BED: A DIS: 04/29/2024 SPEC #: [id number] RECD: 04/25/24 18:10 STATUS: KARL REBritany #: [id number] GENNARO: 04/25/24 13:[address]: Kraig Chamberlain DEPT: Surgical Specimen RECD BY: Trice Aguirre ENTERED: 04/25/24 18:10 SP TYPE: Appendix OTHR DR: Unknown,Unknown Tissues: 1 - APPENDIX NOT INCIDENTAL Procedures: GROSS AND MICRO LEVEL 3 Comments: [id number]
[2024-04-25] MEDS: Bupivacaine LIPOSOME/PF 133 MG/10 ML VIAL IJ (14:00)
[2024-04-25] MEDS: Bupivacaine 0.25% Pres-Free 30 ML VIAL (14:00)
--- NOTE | 2024-04-25 14:26 | W.PM.OP ---
Date of service: 04/25/24 Time of Service: 14:26 Operative Note Operative Note Refer to Anesthesia Record Procedure Description: Procedures performed: 1. Laparoscopic appendectomy Pre-op diagnosis: Acute appendicitis Postoperative diagnosis: Perforated appendicitis Surgeon: Justina Chamberlain Anesthesia: [employer] Consumer Service: April Indication for procedure: 33-year-old man who describes 24 hours of acute abdominal pain and cross-sectional imaging showing acute appendicitis. FINDINGS: Purulent peritonitis isolated to the right lower quadrant and pelvis. No focal abscess or organized collection. Extensive washout performed. Gangrenous appendix excised. Specimens: 1. Appendix Complications: None Blood loss: 50 cc Urine output: Not measured Implants/drains: 15 Stateless BAYLEE drain left in the right pericolic gutter and pelvis Procedure in detail: Patient gave written consent and was in agreement with the indications, the likely benefits as well as the potential risks of surgery. He was taken back to the operating room where anesthesia was administered which was tolerated well. He was positioned supine on the operating room table and we then prepped and draped in sterile fashion. We confirmed DVT prophylaxis as well as antibiotics had been administered at the appropriate time intervals. When we were all in agreement with our timeout we started the procedure. A mixture of Marcaine and Exparel was injected at the umbilicus. A small stab incision was made at the umbilicus and an Optiview trocar entry was performed. Insufflation was performed which was tolerated well. 2 more trocars were placed under direct visualization in the suprapubic location in the left lower quadrant. Local anesthetic was also given in each of the sites. There was obvious purulence in the right lower quadrant as well as the pelvis. There was no significant free fluid but purulent exudate all over the peritoneal lining, the cecum and the ileum nearby. I was able to easily identify the appendix which was gangrenous and appeared perforated two th[address] the way down it. The base of the appendix looked healthy. I used the LigaSure to divide the mesoappendix. I then divided the appendix at the base with a stapler in usual fashion. Unfortunately the staple line had a small bleeder and I had to reinforce the staple line with a 5 mm Endo Clip special equipment technician. I used the suction strap cutting machine operator and washed out the right pericolic gutter, washed out interloop exudate amongst the ileal loops. I also washed out the pelvis. I left a 15 Stateless drain in the right pericolic gutter and pelvis. The appendix specimen was then removed from the peritoneal cavity. I rechecked for hemostasis at the staple line and mesoappendix dissection locations and it was excellent. I closed the fascia with 0 Vicryl. Patient tolerated the procedure well. The sponge, instruments and sharps counts were correct x3 at the end of the procedure. He was extubated and taken to the PACU in hemodynamically stable condition.
[2024-04-25] MEDS: Albuterol/Ipratropium 3 ML UPD VIAL UPD (14:35)
[2024-04-25] MEDS: fentaNYL 100 MCG/2 ML VIAL IVP ×2 (15:06→15:15)
--- NOTE | 2024-04-25 15:11 | W.ANESPOSTOP ---
Postoperative Evaluation Date, Time and Location Date Performed: 04/25/24 Time Performed: 15:11 Patient Location: PACU Vital Signs Most Recent Imported Vital Signs: Most Recent Vital Signs Temp Pulse Resp BP Pulse Ox 36.5 C 114 H 16 106/65 98 04/25/24 14:56 04/25/24 14:56 04/25/24 14:56 04/25/24 14:56 04/25/24 14:56 Pain Score Most Recent Pain Score: Most Recent Pain Score Pain Level 7 04/25/24 10:42 Assessment Mental Status: Awake (Alert & Oriented to Patient Baseline) Airway and Respiratory Function: Patent airway with normal (patient baseline) respiratory exam (Still coughing intermittently. Has improved. Educated to cease smoking. ) Cardiovascular Function: Hemodynamically Stable Hydration Status: Adequately Hydrated Nausea & Vomiting: No Nausea or Vomiting Pain: Pain is Moderate or Severe Postoperative Pain Management: Pain being addressed with medication and Ongoing pain, patient will be managed as an inpatient Peripheral Nerve Block: Patient did not receive a nerve block
--- NOTE | 2024-04-25 16:12 | NUR.NOTE ---
Nursing Note: OR staff brought pt to MS floor around 4pm. last given toradol at 3:19, and is asking for more. taught to splint, ice pack on abdomen. Family members concerned for his wellbeing.
[2024-04-25] MEDS: LORazepam 1 MG TAB PO (16:41)
[2024-04-25] MEDS: PIPERACILLIN/TAZO 4.5 GM in Normal Saline 100 ML IVPB ×2 (16:42→23:29)
[2024-04-25] MEDS: HYDROmorphone 2 MG/ML SYR 1 MG IVP ×2 (16:54→20:09)
--- NOTE | 2024-04-25 17:33 | NUR.NOTE ---
PACU nurse reported to MS nurse that pt had stated that he wished he had not woken up from surgery. Per his mother, he had reported this to her prior to surgery. He repeated this to her post surgery after being recovered in PACU and back to MS for an hour. Paged surgeon, who called back on the 2nd page, reported these findings and told of pt's past MH struggles. Surgeon stated that he is not worried about the post surgical depression and declined to order a MH consult when nursing asked for one. He gave VO to give his home meds tonight as a one time dose, but declined to order anything else. Nursing Note:
--- NOTE | 2024-04-25 17:41 | TELEP.MEDR_ITS ---
Date of service: 04/25/24 Time of Service: 17:41 Telepharmacy Home Med Rec Allergies Allergies: No Known Allergies Allergy (Unverified 04/24/24 18:58) Interview Person Interviewed: * Patient Quality Quality of Interview/Accuracy of Medication List: Excellent Sources Sources used to compile medication list: [facility] Medication List and SureScripts Changes made to Home Medication List: ADDITIONS: * Trazodone 300mg po hs DELETIONS: * None CHANGES: * Cymbalta 90mg po daily (total daily dose 30mg + 60mg) Additional Notes Additional Notes: None Recommended Changes Recommended Changes(reason for recommendation): None Attestation: The home medication list is now updated to the best of my knowledge and is ready to be reconciled by the provider. Please contact the [facility] Reconciliation Pharmacist at for any questions.
--- NOTE | 2024-04-25 17:41 | TELEP.MEDREC ---
Date of service: 04/25/24 Time of Service: 17:41 Telepharmacy Home Med Rec Allergies Allergies: No Known Allergies Allergy (Unverified 04/24/24 18:58) Interview Person Interviewed: Patient Quality Quality of Interview/Accuracy of Medication List: Excellent Sources Sources used to compile medication list: [employer] Medication List and SureScripts Changes made to Home Medication List: ADDITIONS: Trazodone 300mg po hs DELETIONS: None CHANGES: Cymbalta 90mg po daily (total daily dose 30mg + 60mg) Additional Notes Additional Notes: None Recommended Changes Recommended Changes(reason for recommendation): None Attestation: The home medication list is now updated to the best of my knowledge and is ready to be reconciled by the provider. Please contact the TelePharmacy Medication Reconciliation Pharmacist at for any questions.
[2024-04-25] MEDS: DULoxetine 30 MG CAP 90 MG PO (18:13)
[2024-04-25] MEDS: Amphet Asp/Amphet/D-Amphet 10 MG TAB 20 MG PO (18:14)
[2024-04-25] MEDS: OLANZapine 10 MG TAB PO (18:14)
[2024-04-25] MEDS: traZODone 100 MG TAB PO (21:47)
[2024-04-25] MEDS: traZODone 50 MG TAB PO (21:48)
[2024-04-26] MEDS: Heparin 5,000 UNITS/ML VIAL 5000 UNITS SC ×3 (00:08→15:37)
[2024-04-26] MEDS: Ketorolac 15 MG/ML VIAL 30 MG IVP ×3 (00:17→15:37)
[2024-04-26] MEDS: Lactated Ringers 1,000 ML 150 ML IV ×2 (01:06→07:50)
[2024-04-26] MEDS: ACETAMINOPHEN 1,000 MG/100 ML BTL 400 MG IVPB ×4 (04:13→21:55)
[2024-04-26] MEDS: PIPERACILLIN/TAZO 4.5 GM in Normal Saline 100 ML IVPB ×4 (04:14→22:22)
[2024-04-26] MEDS: HYDROmorphone 2 MG/ML SYR 1 MG IVP ×3 (05:38→16:34)
[2024-04-26] MEDS: Amphet Asp/Amphet/D-Amphet 10 MG TAB 20 MG PO (07:33)
[2024-04-26] MEDS: Normal Saline Flush 10 ML SYR IVP ×3 (07:34→19:59)
--- NOTE | 2024-04-26 07:58 | W.PM.PROGNOT ---
Date of Service Date of service: 04/26/24 Time of Service: 07:58 Assessment and Plan Assessment and plan (1) Acute appendicitis: Status: Acute Assessment and plan: 33-year-old man postop day 1 from laparoscopic appendectomy. His appendix was found to be perforated and there was relatively?diffuse but right lower quadrant/pelvis?localized purulent peritonitis present. For these reasons a drain was left in place. We had a discussion today about his presentation. I presume the severe pain he felt suddenly on Tuesday morning was the perforation event. This would coincide with his presentation to the ED of being tachycardic and diaphoretic with low blood pressure. He responded to resuscitation appropriately and I explained that that was probably his body walling off the perforation on its own. In any event he needs to stay in the hospital for IV antibiotics until he has a normal white blood cell count and no fever for greater than 24 hours. He can otherwise have regular food as tolerated. Drain will be in place for 5 days. Subjective Subjective Interval history since last seen: No overnight events. Patient reports drastic improvement. I feel so much better. No nausea or vomiting. He also does not have an appetite though. No fevers. Family is at the bedside with him. He does not have any complaints this morning about his mood. Mostly they just want to verify that he can continue taking his medications. Exam Narrative Exam Narrative: General: Nontoxic, comfortable and interactive Neuro: Alert and oriented x 3 Psych: Reasonable and seemingly upbeat/good mood and affect. Good insight and understanding. Chest: Nonlabored breathing Heart: Regular Abdomen: Soft, appropriately tender, no significant distention appreciated. Surgical drain has serosanguineous fluid in it. It is not purulent. Objective Last Vital Signs Temp 98.1 F 04/25/24 19:35 Pulse 103 H 04/25/24 19:35 Resp 20 04/25/24 19:35 BP 126/78 04/25/24 19:35 Pulse Ox 95 04/25/24 19:35 PAWSS Have you Been Recently Intoxicated or Drunk Within the Last 30 days?: No Have you Ever Experienced Previous Episodes of Alcohol Withdrawal?: No Have you ever Experienced Withdrawal Seizures?: No Have you ever Experienced Delirium Tremens(DT)s?: No Have you ever undergone Alcohol Rehabilitation Treatment (i.e, inpt ot outpatient treatment programs)?: No Have you ever Experienced Blackouts?: No Have you ever Combined Alcohol with other Downers within the last 90 days?: No Have you ever Combined Alcohol with any other Substance of Abuse during the last 90 days?: No Positive Blood Alcohol level on Presentation? [PCS.BAL]: No Evidence of Increased Autonomic Activity (i.e. HR>120, tremor, sweating, agitation, nausea)?: No Result: 0 Time Spent with Patient Time Spent with Patient: <25 minutes Time was spent: preparing to see the patient(eg.review tests), obtaining and/or reviewing separately otained hiistory, referring, communicating with other health primary care physician, counseling the patient and care coordination
[2024-04-26 08:00] VITALS: BP 106/72; PULSE 86; RESP 17; TEMP 36.7; O2SAT 94
[2024-04-26] MEDS: lamoTRIgine 100 MG TAB PO (09:19)
[2024-04-26] MEDS: DULoxetine 30 MG CAP 90 MG PO (09:20)
--- NOTE | 2024-04-26 10:50 | PDOC.CMPRO ---
Date of service: 04/26/24 Time of Service: 10:50 Care Management Progress Note Discharge Potential Discharge Needs: Surgical F/U Appt Anticipated Barriers to Discharge: None Identified Patient/Family Education Needs: Review discharge instructions, discuss Ask Me Three Transportation: Private vehicle Plan: Anticipate Jose Alfredo will be discharged home with no new services when stable. He will follow up with his surgeon and plan of care and transport with nathalia. CM will follow and support discharge needs. SDOH(Care Management) Screening Will the Patient Participate in the Screening?: Declined to provide Do you worry about having a steady place to live?: no
[2024-04-26 11:08] LABS: Abs Immature Grans 0.06 10^3/uL (0.0-0.06); Absolute Lymphocyte Count 1.15 10^3/uL (1.2-3.4); Absolute Monocyte Count 0.46 10^3/uL (0.1-0.8); Basophils % 0.1 %; HCT 37.2 % (40.0-50.0); HGB 13.1 g/dL (13.5-17.5); Immature Grans % 0.4 %; Lymphocytes % 7.9 %; MCH 30.5 pg (27.0-33.0); MCHC 35.2 % (32.0-36.0); MCV 87 fL (80-95); MPV 9.7 fL (8.0-11.0); Monocytes % 3.2 %; Neutrophils % 88.4 %; Platelet Count 288 10^3/uL (130-400); RBC 4.29 10^6/uL (4.36-5.78); RDW-SD 38.6 fL
[2024-04-26 11:09] LABS: Absolute Basophil Count 0.01 10^3/uL (0.0-0.2); Absolute Neutrophil Count 12.82 10^3/uL (1.2-6.7)
--- NOTE | 2024-04-26 13:05 | CMPROGNOTE_ITS ---
Date of service: 04/26/24 Time of Service: 13:05 Care Management Progress Note Progress Note Text Progress Note Text: Jose Alfredo was lying in bed when CM met with him. He stated that he is doing well and that his surgery went well yesterday, per MD. He reported that per MD, he expects to be discharged home tomorrow. 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 CM sent a referral to [employer] for insurance support, and also discussed [facility]'s financial assistance packet, which CM will provide. CM will continue to follow. Discharge Potential Discharge Needs: Surgical F/U Appt Anticipated Barriers to Discharge: Medical Status Patient/Family Education Needs: Review discharge instructions, discuss Ask Me Three Transportation: Private vehicle Plan: Anticipate Jose Alfredo will be discharged home with no new services when stable. He will follow up with his surgeon and plan of care and transport with family. CM will follow and support discharge needs. SDOH(Care Management) Screening Will the Patient Participate in the Screening?: Declined to provide Do you worry about having a steady place to live?: no
[2024-04-26 15:27] VITALS: BP 136/89; PULSE 84; RESP 16; TEMP 37.3; O2SAT 93
--- NOTE | 2024-04-26 15:58 | NUR.NOTE ---
Nursing Note: called to pt's room due to pt getting out of bed without notifying staff. Pt experienced sudden pain resulting in about 20 ml of green liquid emesis. Nausea immediately resolved. Pt has not eaten since prior to surgery. Pt educated on progression on post surgical diet and activity. Pt agreed to start eating saltine crackers. Will monitor.
[2024-04-26] MEDS: Ondansetron 4 MG/2 ML VIAL IVP ×2 (16:38→19:57)
--- NOTE | 2024-04-26 17:06 | NUR.NOTE ---
Pt has only eaten 3 crackers since discussing that he needs to eat to keep stomach acid down. Pt states that he hopes he loses weight from not eating. Educated that his body needs to heal from the surgery and now is not the time to concentrate on losing weight. Pt got nauseous again an vomited approx 400 m of green bile emesis. He then took his newly filled water glass and drank all the water in it. Educated again to drink slowly to let his body heal and get used food and fluids again. Will monitor closely. Nursing Note:
--- NOTE | 2024-04-26 17:49 | NUR.NOTE ---
Had another long discussion with pt about slowing down with food and fluids. He reports that he has always eaten very fast d/t his ADHD. Advised that when he gets home to only take small meals, can have several a day, but keep portions small, and not to drink more that a few ounces of fluids at a time. Pt acknowledged that he will try. Nursing Note:
[2024-04-26] MEDS: OLANZapine 10 MG TAB PO (19:58)
[2024-04-26] MEDS: traZODone 50 MG TAB PO (19:58)
[2024-04-26] MEDS: traZODone 100 MG TAB PO (19:58)
[2024-04-26 21:06] VITALS: BP 143/91; PULSE 102; RESP 14; TEMP 37.5; O2SAT 95
[2024-04-26 23:30] VITALS: BP 126/75; PULSE 100; RESP 16; TEMP 36.6; O2SAT 98
[2024-04-27] MEDS: Heparin 5,000 UNITS/ML VIAL 5000 UNITS SC ×4 (00:17→23:56)
[2024-04-27] MEDS: ACETAMINOPHEN 1,000 MG/100 ML BTL 400 MG IVPB ×4 (03:37→23:46)
[2024-04-27] MEDS: Normal Saline Flush 10 ML SYR IVP ×4 (03:38→11:40)
[2024-04-27] MEDS: PIPERACILLIN/TAZO 4.5 GM in Normal Saline 100 ML IVPB ×4 (03:55→23:41)
[2024-04-27] MEDS: Ketorolac 15 MG/ML VIAL 30 MG IVP ×3 (06:16→20:30)
[2024-04-27 08:00] VITALS: BP 131/83; PULSE 71; RESP 16; TEMP 37; O2SAT 93
[2024-04-27] MEDS: Ondansetron 4 MG/2 ML VIAL IVP ×2 (08:39→17:57)
[2024-04-27] MEDS: DULoxetine 30 MG CAP 90 MG PO (09:12)
[2024-04-27] MEDS: lamoTRIgine 100 MG TAB PO (09:13)
--- NOTE | 2024-04-27 10:40 | W.PM.PROGNOT ---
Date of Service Date of service: 04/27/24 Time of Service: 10:40 Assessment and Plan Assessment and plan (1) Acute appendicitis: Start date: 04/27/24 Start time: 10:43 Status: Acute Qualifiers: Acute appendicitis type: with localized peritonitis Appendicitis perforation presence: with perforation (2) Acute perforated appendicitis: Status: Acute (3) Hx of appendectomy: Assessment and plan: Patient most likely having postoperative ileus following recent appendectomy for perforated appendicitis. He was advised to take liquids only as tolerated. We are going to change his IV fluid to D5 half-normal saline at 75 cc an hour. Will add Compazine for his nausea and vomiting. Hopefully his ileus will resolve in the next 2 to 3 days. Subjective Subjective Patient reports: no bowel movement, nausea, vomiting, afebrile and fever Exam Narrative Exam Narrative: Patient is awake and alert and looks comfortable. Vital signs stable. Patient complaining of nausea and repeated vomiting. Abdomen is somewhat distended but soft diffusely tender however it is improved from preop. Bowel sounds present. BAYLEE drain noted with some bilious contents. Objective Last Vital Signs Temp 98.6 F 04/27/24 08:00 Pulse 71 04/27/24 08:00 Resp 16 04/27/24 08:00 BP 131/83 04/27/24 08:00 Pulse Ox 93 04/27/24 08:00 Laboratory Results - last 24 hr 04/26/24 10:58 WBC 14.50 H RBC 4.29 L Hgb 13.1 L D Hct 37.2 L MCV 87 MCH 30.5 MCHC 35.2 RDW 12.0 Plt Count 288 MPV 9.7 Immature Gran % 0.4 Neutrophils % 88.4 Lymphocytes % 7.9 Monocytes % 3.2 Eosinophils % 0.0 Basophils % 0.1 Nucleated RBC % 0.0 Absolute Neutrophils 12.82 H Absolute Lymphocytes 1.15 L Absolute Monocytes 0.46 Absolute Eosinophils 0.00 Absolute Basophils 0.01 PAWSS Have you Been Recently Intoxicated or Drunk Within the Last 30 days?: No Have you Ever Experienced Previous Episodes of Alcohol Withdrawal?: No Have you ever Experienced Withdrawal Seizures?: No Have you ever Experienced Delirium Tremens(DT)s?: No Have you ever undergone Alcohol Rehabilitation Treatment (i.e, inpt ot outpatient treatment programs)?: No Have you ever Experienced Blackouts?: No Have you ever Combined Alcohol with other Downers within the last 90 days?: No Have you ever Combined Alcohol with any other Substance of Abuse during the last 90 days?: No Positive Blood Alcohol level on Presentation? [PCS.BAL]: No Evidence of Increased Autonomic Activity (i.e. HR>120, tremor, sweating, agitation, nausea)?: No Result: 0 Time Spent with Patient Time Spent with Patient: <25 minutes Time was spent[facility] and[facility]
[2024-04-27] MEDS: Normal Saline 10 ML VIAL IJ (11:39)
[2024-04-27] MEDS: Prochlorperazine 10 MG/2 ML VIAL IVP ×2 (11:39→20:48)
[2024-04-27] MEDS: DEXTROSE 5%-0.45% SALINE 1,000 ML 75 ML IV (11:45)
[2024-04-27 13:14] LABS: Abs Immature Grans 0.07 10^3/uL (0.0-0.06); Absolute Basophil Count 0.05 10^3/uL (0.0-0.2); Absolute Eosinophil Count 0.17 10^3/uL (0.0-0.7); Absolute Lymphocyte Count 1.56 10^3/uL (1.2-3.4); Absolute Neutrophil Count 9.15 10^3/uL (1.2-6.7); Basophils % 0.4 %; Eosinophils % 1.5 %; HCT 40.9 % (40.0-50.0); HGB 13.9 g/dL (13.5-17.5); Immature Grans % 0.6 %; Lymphocytes % 13.7 %; MCH 30.3 pg (27.0-33.0); MCV 89 fL (80-95); MPV 9.4 fL (8.0-11.0); Monocytes % 3.5 %; Neutrophils % 80.3 %; Platelet Count 350 10^3/uL (130-400); RBC 4.58 10^6/uL (4.36-5.78); RDW-SD 38.9 fL; WBC 11.39 10^3/uL (4.4-10.8)
--- NOTE | 2024-04-27 14:15 | PDOC.CMPRO ---
Date of service: 04/27/24 Time of Service: 14:15 Care Management Progress Note Progress Note Text Progress Note Text: Jose Alfredo was sleeping when CM attempted to meet with him. His girlfriend was in the room, visiting. CM spoke to [employer] today, who reported that they have reached out to Jose Alfredo but have not been able to obtain the necessary information yet to help him apply for [employer]. CM mentioned this to his girlfriend, who will encourage him to call [employer] back when he is able. Per MD report, Jose Alfredo has had repeated vomiting and nausea; he remains on IV fluids at this time. CM will continue to follow. Discharge Potential Discharge Needs: Surgical F/U Appt Anticipated Barriers to Discharge: Medical Status Patient/Family Education Needs: Review discharge instructions, discuss Ask Me Three Transportation: Private vehicle Plan: Anticipate Jose Alfredo will be discharged home with no new services when stable. He will follow up with his surgeon and plan of care and transport with family. CM will follow and support discharge needs. SDOH(Care Management) Screening Will the Patient Participate in the Screening?: Declined to provide Do you worry about having a steady place to live?: no
[2024-04-27 15:30] VITALS: BP 129/90; PULSE 84; RESP 17; TEMP 37.5; O2SAT 94
[2024-04-27 19:35] VITALS: BP 124/80; PULSE 95; RESP 18; TEMP 38; O2SAT 96
[2024-04-27] MEDS: traZODone 100 MG TAB PO (20:28)
[2024-04-27] MEDS: OLANZapine 10 MG TAB PO (20:28)
[2024-04-27] MEDS: Simethicone 80 MG CHEW PO (20:28)
[2024-04-27] MEDS: traZODone 50 MG TAB PO (20:29)
[2024-04-27 21:31] VITALS: TEMP 36.8
[2024-04-28] MEDS: DEXTROSE 5%-0.45% SALINE 1,000 ML 75 ML IV (04:11)
[2024-04-28] MEDS: Simethicone 80 MG CHEW PO ×2 (05:26→20:36)
[2024-04-28] MEDS: ACETAMINOPHEN 1,000 MG/100 ML BTL 400 MG IVPB ×2 (05:26→15:42)
[2024-04-28] MEDS: PIPERACILLIN/TAZO 4.5 GM in Normal Saline 100 ML IVPB ×4 (05:27→22:42)
[2024-04-28 07:30] VITALS: BP 115/80; PULSE 90; RESP 20; TEMP 37; O2SAT 94
--- NOTE | 2024-04-28 09:07 | PGE_ITS ---
Date of Service Date of service: 04/28/24 Time of Service: 09:07 Assessment and Plan Assessment and plan (1) Acute appendicitis: Start date: 04/28/24 Start time: 09:10 Status: Acute Assessment and plan: Patient 33-year-old male who underwent laparoscopic appendectomy for perforated acute appendicitis done 3 days ago. Postoperatively he developed some ileus which appears to be resolving now. Patient is feeling better and had a bowel movement. Will plan to advance his diet today and teach drain care. Possible discharge tomorrow if continues to improve. Plan discussed with the patient and significant other. Qualifiers: Acute appendicitis type: with localized peritonitis Appendicitis perforation presence: with perforation Subjective Subjective Patient reports: feels better, flatus, bowel movement and afebrile Interval history since last seen: Patient subjectively feels much better. He is passing flatus and had a bowel movement. Denies any significant abdominal pain. Exam Narrative Exam Narrative: Patient is awake and alert, all vitals within normal. Patient is lying in bed appears comfortable. Abdomen is soft slightly distended appropriately tender. All incisions are healing well without evidence of infection or drainage. Bowel sounds present. Objective Last Vital Signs Temp 98.6 F 04/28/24 07:30 Pulse 90 04/28/24 07:30 Resp 20 04/28/24 07:30 BP 115/80 04/28/24 07:30 Pulse Ox 94 04/28/24 07:30 Laboratory Results - last 24 hr 04/27/24 13:00 WBC 11.39 H RBC 4.58 Hgb 13.9 Hct 40.9 MCV 89 MCH 30.3 MCHC 34.0 RDW 12.0 Plt Count 350 MPV 9.4 Immature Gran % 0.6 Neutrophils % 80.3 Lymphocytes % 13.7 Monocytes % 3.5 Eosinophils % 1.5 Basophils % 0.4 Nucleated RBC % 0.0 Absolute Neutrophils 9.15 H Absolute Lymphocytes 1.56 Absolute Monocytes 0.40 Absolute Eosinophils 0.17 Absolute Basophils 0.05 Reviewed Pertinent PMH: Yes PAWSS Have you Been Recently Intoxicated or Drunk Within the Last 30 days?: No Have you Ever Experienced Previous Episodes of Alcohol Withdrawal?: No Have you ever Experienced Withdrawal Seizures?: No Have you ever Experienced Delirium Tremens(DT)s?: No Have you ever undergone Alcohol Rehabilitation Treatment (i.e, inpt ot ou tpatient treatment programs)?: No Have you ever Experienced Blackouts?: No Have you ever Combined Alcohol with other Downers within the last 90 days?: No Have you ever Combined Alcohol with any other Substance of Abuse during the last 90 days?: No Positive Blood Alcohol level on Presentation? [PCS.BAL]: No Evidence of Increased Autonomic Activity (i.e. HR>120, tremor, sweating, agitation, nausea)?: No Result: 0 Time Spent with Patient Time Spent with Patient: <25 minutes Time was spent: preparing to see the patient(eg.review tests), obtaining and/or reviewing separately otained hiistory and counseling the patient
[2024-04-28] MEDS: Heparin 5,000 UNITS/ML VIAL 5000 UNITS SC ×2 (09:08→15:42)
[2024-04-28] MEDS: DULoxetine 30 MG CAP 90 MG PO (09:09)
[2024-04-28] MEDS: lamoTRIgine 100 MG TAB PO (09:09)
[2024-04-28] MEDS: Normal Saline Flush 10 ML SYR IVP ×2 (11:04→13:06)
[2024-04-28] MEDS: Ketorolac 15 MG/ML VIAL 30 MG IVP (13:05)
[2024-04-28 15:13] VITALS: BP 142/95; PULSE 89; RESP 16; TEMP 37.3; O2SAT 96
[2024-04-28 19:51] VITALS: BP 124/85; PULSE 86; RESP 20; TEMP 37.3; O2SAT 94
[2024-04-28] MEDS: OLANZapine 10 MG TAB PO (20:35)
[2024-04-28] MEDS: traZODone 50 MG TAB PO (20:36)
[2024-04-28] MEDS: traZODone 100 MG TAB PO (20:36)
[2024-04-29] MEDS: Heparin 5,000 UNITS/ML VIAL 5000 UNITS SC ×2 (00:07→08:30)
[2024-04-29] MEDS: DEXTROSE 5%-0.45% SALINE 1,000 ML 75 ML IV (02:18)
[2024-04-29] MEDS: PIPERACILLIN/TAZO 4.5 GM in Normal Saline 100 ML IVPB ×2 (04:07→09:51)
[2024-04-29] MEDS: Simethicone 80 MG CHEW PO (04:08)
[2024-04-29] MEDS: ACETAMINOPHEN 1,000 MG/100 ML BTL 400 MG IVPB (04:10)
[2024-04-29 07:38] VITALS: BP 120/81; PULSE 88; RESP 17; TEMP 36.7; O2SAT 95
[2024-04-29 08:06] LABS: HCT 38.8 % (40.0-50.0); HGB 13.5 g/dL (13.5-17.5); MCH 30.4 pg (27.0-33.0); MCHC 34.8 % (32.0-36.0); MCV 87 fL (80-95); MPV 9.1 fL (8.0-11.0); Platelet Count 332 10^3/uL (130-400); RBC 4.44 10^6/uL (4.36-5.78); RDW 11.8 % (11.8-14.1)
[2024-04-29] MEDS: lamoTRIgine 100 MG TAB PO (08:30)
[2024-04-29] MEDS: DULoxetine 30 MG CAP 90 MG PO (08:30)
[2024-04-29] MEDS: Normal Saline Flush 10 ML SYR IVP (08:31)
--- NOTE | 2024-04-29 09:21 | W.PM.DS.N ---
Date of service: 04/29/24 Time of Service: 09:21 DS: Diagnosis Discharge Diagnosis (1) Acute appendicitis: Start date: 04/25/24 Start time: 07:00 Status: Acute Asessment and Plan: Patient 33-year-old male presented with abdominal pain to the emergency room evaluation and imaging showed evidence of perforated acute appendicitis. He was taken to the operating room by Dr. Chamberlain and underwent laparoscopic appendectomy with the placement of a pelvic drain. Patient developed some ileus postoperatively however he continued to improve and on the day of discharge was tolerating regular diet and wants to be discharged home. Discharge Plan Disposition Patient Disposition: Home Condition: Improving Discharge Details Reason For Visit: Acute Appendicitis Admit Date/Time: 04/24/24 20:43 Admit Provider: Kraig Chamberlain Attending Provider: Kraig Chamberlain Primary Care Provider: Unknown,Unknown Hospital Course Hospital Course: Patient underwent laparoscopic appendectomy on April 25. He developed ileus postoperatively which gradually improved. On postoperative day #3 he was restarted on liquids and slowly advance to a regular diet which he tolerated. He was having some soft bowel movements on discharge. Home Meds and New Rx's Prescriptions: New amoxicillin-pot clavulanate 875-125 mg tablet 1 tab PO BID Qty: 14 0RF Continued ziprasidone HCl [Geodon] 40 mg capsule 40 mg PO DAILY Patient Comments: Per patient : takes 1 cap one time daily Rx Instructions: give with food (meal/snack) lamotrigine 100 mg tablet 100 mg PO DAILY duloxetine 60 mg capsule,delayed release(DR/EC) 60 mg PO DAILY Rx Instructions: with 30mg total daily dose 90mg duloxetine 30 mg capsule,delayed release(DR/EC) 30 mg PO DAILY Rx Instructions: with 60mg total daily dose 90mg olanzapine 10 mg tablet 10 mg PO QPM Patient Comments: TAKE ONE TABLET BY MOUTH AT BEDTIME dextroamphetamine-amphetamine 30 mg capsule,extended release 24hr 30 mg PO DAILY Patient Comments: TAKE ONE CAPSULE BY MOUTH EVERY DAY lorazepam 1 mg tablet 1 mg PO Q12H PRN Patient Comments: TAKE 1 TABLET BY MOUTH EVERY 12 HOURS NEEDED trazodone 300 mg tablet 300 mg PO HS Discharge Instructions Additional Instructions: Patient to take a regular diet as tolerated. Activity as tolerated. No lifting more than 25 pounds for 7 to 10 days. Referrals: Kraig Chamberlain MD [ [facility] STAFF PHYSICIAN] - Activity:: No lifting more than 25 p Equipment/Supplies:: No Equipment Needed Diet:: As Tolerated DS: Summary Time Spent with Patient providing and/or coordinating discharge services: Less than 30 minutes Status at Discharge Functional status at discharge: independent ambulation Overall status at discharge: patient is progressing back to baseline Mental Status: mental status grossly normal Speech and Movement: speech and movement normal Mood: congruent mood Affect: normal affect Quality:SDOH Health Related Social Needs: No Data to Display Exam Narrative Exam Narrative: Patient is awake and alert, all vitals within normal. Abdomen soft and nontender. Abdomen is slightly distended with active bowel sounds. Incisions are clean with no evidence of infection. Drain coming out the suprapubic trocar site with serous drainage. Psych Mental Status: mental status grossly normal Speech and Movement: speech and movement normal Mood: congruent mood Affect: normal affect DS: Data Vitals/I&O Vitals and I&O: Vital Signs Temperature 98.1 F 04/29/24 07:38 Temperature Source Tympanic 04/29/24 07:38 Pulse 88 04/29/24 07:38 Pulse Rhythm Regular 04/29/24 03:34 Pulse 113 H 04/25/24 15:31 Respiratory Rate 17 04/29/24 07:38 Respiratory Effort Normal, Non-Labored 04/29/24 03:34 Respiratory Depth Normal 04/29/24 03:34 Respiratory Pattern Normal 04/29/24 03:34 Blood Pressure 120/81 04/29/24 07:38 Blood Pressure Mean 89 04/25/24 15:31 Pulse Oximetry 95 04/29/24 07:38 Respiratory End-tidal CO2 43 04/25/24 15:16 Oxygen Delivery Method Room Air 04/29/24 07:38 Oxygen Flow Rate 0 04/29/24 07:38 Pain Level 0 04/29/24 07:38 Comment AFEBRILE 1HOUR POST PRN TORADOL ADMINISTRATION 04/27/24 21:31 Intake & Output 04/28/24 04/28/24 04/29/24 11:59 23:59 11:59 Intake Total 1750 / 3050 1300 / 3050 200 / 200 Output Total 465 / 545 80 / 545 70 / 70 Balance 1285 / 2505 1220 / 2505 130 / 130 Intake: IV 1510 / 2810 1300 / 2810 200 / 200 Oral 240 / 240 Output: Drainage 165 / 245 80 / 245 70 / 70 Left Abdomen 165 / 245 80 / 245 70 / 70 Urine 300 / 300 Other: Urine Color Yellow Yellow Yellow Urine Appearance Clear Clear Clear Urine Odor None Normal Comment THIS RN PROVIDED STAND-BY ASSISTANCE WHILE AMBULATING BACK AND FORTH TO BR voided independently Stool Size Small Small Stool Characteristics Liquid Soft Liquid Voiding Methods Toilet Toilet Toilet Data Completed and Pending Labs on day of discharge: Labs from last 24 hours 04/29/24 07:55 WBC 8.50 RBC 4.44 Hgb 13.5 Hct 38.8 L MCV 87 MCH 30.4 MCHC 34.8 RDW 11.8 Plt Count 332 MPV 9.1 Preliminary micro results at discharge 04/24/24 20:45 Blood Culture - Preliminary Blood NO GROWTH 96 HOURS 04/24/24 20:45 Blood Culture - Preliminary Blood NO GROWTH 96 HOURS PFSH All Active Problems (Updated 04/27/24 @ 10:50 by Faustino Pena MD) Acute perforated appendicitis (Acute) Acute appendicitis (Acute) Surgical History (Updated 04/25/24 @ 15:34 by Reema Lucio) Hx of appendectomy (~04/2024) Social History Smoking risk assessment performed?: No Housing: apartment Time Spent with Patient Time Spent with Patient: <45 minutes Time was spent: preparing to see the patient(eg.review tests), ordering medications,tests, procedures and counseling the patient
--- NOTE | 2024-04-29 15:36 | CMDISCH_ITS ---
Date of service: 04/29/24 Time of Service: 15:36 LACE Index Scoring Tool Questions: Length of Stay (in days): 4 - 6 Was the patient admitted via the E.D.?: Yes E.D. Visits: 0 Answers: Total Score: 7 Risk of Readmission: Low Risk Care Management Discharge Plan Reason for Hospitalization: Appendicitis Discharge Plan: Home with outpatient follow up with surgery; [facility] and [facility] follow up offered as well. Transport via private vehicle with significant other. Patient/Family Education Needs: Review discharge instructions, self care needs upon discharge. SDOH Health Related Social Needs: No Data to Display Health related social needs details: Self Pay Referrals and interventions: [facility], [facility], Financial Assistance packet provided. Care Management Referrals: [facility] and PCP [facility] ([facility] ) Referral for Financial Health Care Support: Financial Assistance
== END 2024-04-29 10:57 | disposition home or self-care (01) ==
LOC: ER 21:03 → MS 22:11
PROVIDERS: Specialist; Admitting Provider Student in an Organized Health Care Education/Training Program; Emergency Provider Registered Nurse Emergency; Visit Provider Student in an Organized Health Care Education/Training Program
PROC: 0DTJ4ZZ Resection of Appendix, Percutaneous Endoscopic Approach (ICD-10-PCS; CPT 44970; principal; 2024-04-25 12:30)
DX: K35.32 Acute appendicitis with perforation, localized peritonitis, and gangrene, without abscess (principal); K91.89 Other postprocedural complications and disorders of digestive system; K56.7 Ileus, unspecified
CPT/HCPCS: 44970; 00123; 36415; 80053; 83690; 85027; 86850; 86900; 86901; 87040; 93005; 96361; 96365; 96366; 96367; 96372; 96375; 96376; 99291; 74177; 81003; 81015; 83605; 83735; 85025; 85610; 85730; 88304; 93010; C9290; G0378; J0131; J0665; J0780; J1100; J1170; J1644; J1885; J2001; J2250; J2270; J2405; J2543; J2704; J3010; J3490; J7620

== ENCOUNTER 2024-04-30 20:00 | Outpatient (CLI) | payer SELFPAY ==
[2024-04-30 16:00] LABS: Abs Immature Grans 0.22 10^3/uL (0.0-0.06); Absolute Basophil Count 0.06 10^3/uL (0.0-0.2); Absolute Eosinophil Count 0.23 10^3/uL (0.0-0.7); Absolute Lymphocyte Count 2.09 10^3/uL (1.2-3.4); Absolute Neutrophil Count 6.12 10^3/uL (1.2-6.7); Basophils % 0.6 %; Eosinophils % 2.5 %; HCT 41.5 % (40.0-50.0); HGB 14.7 g/dL (13.5-17.5); Immature Grans % 2.4 %; Lymphocytes % 22.4 %; MCH 30.2 pg (27.0-33.0); MCHC 35.4 % (32.0-36.0); MCV 85 fL (80-95); MPV 9.3 fL (8.0-11.0); Monocytes % 6.4 %; Neutrophils % 65.7 %; Platelet Count 412 10^3/uL (130-400); RBC 4.86 10^6/uL (4.36-5.78); RDW 11.9 % (11.8-14.1); WBC 9.32 10^3/uL (4.4-10.8)
[2024-04-30 16:09] LABS: C-Reactive Protein 3.01 mg/dL (<or=0.5)
== END 2024-04-30 20:01 | disposition home or self-care (01) ==
LOC: LBO 20:00
PROVIDERS: Visit Provider Surgery
DX: K35.32 Acute appendicitis with perforation, localized peritonitis, and gangrene, without abscess (principal); R50.9 Fever, unspecified
CPT/HCPCS: 36415; 85025; 86140

== ENCOUNTER 2024-08-07 10:41 | Outpatient (CLI) | payer SELFPAY ==
[2024-08-07 09:00] LABS: HCT 45.8 % (40.0-50.0); HGB 15.9 g/dL (13.5-17.5); MCH 30.2 pg (27.0-33.0); MCHC 34.7 % (32.0-36.0); MCV 87 fL (80-95); MPV 9.4 fL (8.0-11.0); Platelet Count 302 10^3/uL (130-400); RBC 5.27 10^6/uL (4.36-5.78); RDW-SD 38.4 fL; WBC 5.84 10^3/uL (4.4-10.8)
[2024-08-07 10:00] LABS: ALT 58 U/L (16-63); AST 19 U/L (15-37); Albumin 3.9 g/dL (3.4-5.0); Alkaline Phosphatase 54 U/L (46-116); Anion Gap 7.3 mmol/L (3-11); BUN 13 mg/dL (7-18); Bilirubin, Total 0.22 mg/dL (0.2-1.0); CO2 27.7 mmol/L (21.0-32.0); CREATININE 1.2 mg/dL (0.70-1.30); Calcium 9.3 mg/dL (8.5-10.1); Chloride 107 mmol/L (98-107); Estimated GFR 81.89 (mL/min/1.73m2); Glucose 101 mg/dL (74-106); Sodium 142 mmol/L (136-145); TSH 1.79 uIU/Ml (0.36-3.74); Total Protein 7.3 g/dL (6.4-8.2); Vitamin D 25 Total 49.7 ng/mL (30-100)
[2024-08-07 10:19] LABS: VALPROIC ACID 9.7 ug/mL
== END 2024-08-07 10:42 | disposition home or self-care (01) ==
LOC: LBO 10:41
PROVIDERS: Visit Provider Nurse Practitioner Psychiatric/Mental Health
DX: F39 Unspecified mood [affective] disorder (principal)
CPT/HCPCS: 36415; 80053; 82306; 85027; 80164; 84443

== ENCOUNTER 2024-11-05 15:17 | Outpatient (CLI) | payer SELFPAY ==
[2024-11-05 15:53] LABS: *AMPHETAMINES SCREEN URINE Negative (Negative); *BARBITURATES SCREEN URINE Negative (Negative); *BENZODIAZEPINES SCREEN URINE Negative (Negative); Cannabinoids THC Positive (Negative); Cocaine Screen,Urine Negative (Negative); METHADONE URINE SCREEN Negative (Negative); OPIATES URINE SCREEN Negative (Negative); Tricyclic Antidepressants Negative (Negative)
[2024-11-05 15:59] LABS: VALPROIC ACID 58.1 ug/mL
== END 2024-11-05 15:18 | disposition home or self-care (01) ==
LOC: LBO 15:19
PROVIDERS: Visit Provider Nurse Practitioner Psychiatric/Mental Health
DX: F90.9 Attention-deficit hyperactivity disorder, unspecified type (principal); F39 Unspecified mood [affective] disorder
CPT/HCPCS: 36415; 80307; 80164

== ENCOUNTER 2025-07-18 14:43 | Outpatient (CLI) | payer OTHER, SELFPAY | END 2025-07-18 14:44 | disposition home or self-care (01) | LOC: LBO 14:43 | PROVIDERS: PCP Nurse Practitioner Psychiatric/Mental Health; Visit Provider Nurse Practitioner Psychiatric/Mental Health | DX: F41.8 Other specified anxiety disorders (principal) | CPT/HCPCS: 36415; 80164 ==

== ENCOUNTER 2025-09-16 13:34 | Outpatient (CLI) | payer OTHER, SELFPAY ==
[2025-09-16 15:09] LABS: ALT 38 U/L (16-63); AST 18 U/L (15-37); Albumin 4.1 g/dL (3.4-5.0); Alkaline Phosphatase 32 U/L (46-116); Anion Gap 9.3 mmol/L (3-11); BUN 14 mg/dL (7-18); Bilirubin, Total 0.4 mg/dL (0.2-1.0); CO2 28.7 mmol/L (21.0-32.0); Calcium 8.9 mg/dL (8.5-10.1); Chloride 102 mmol/L (98-107); Glucose 86 mg/dL (74-106); Potassium 4.5 mmol/L (3.5-5.1); Sodium 140 mmol/L (136-145); Total Protein 7.6 g/dL (6.4-8.2)
== END 2025-09-16 13:35 | disposition home or self-care (01) ==
LOC: LBO 13:34
PROVIDERS: PCP Nurse Practitioner Psychiatric/Mental Health; Visit Provider Nurse Practitioner Psychiatric/Mental Health
DX: F39 Unspecified mood [affective] disorder (principal)
CPT/HCPCS: 36415; 80053

== ENCOUNTER 2025-09-19 13:49 | Outpatient (CLI) | payer OTHER, SELFPAY | END 2025-09-19 13:50 | disposition home or self-care (01) | LOC: LBO 13:50 | PROVIDERS: PCP Nurse Practitioner Psychiatric/Mental Health; Visit Provider Nurse Practitioner Psychiatric/Mental Health | DX: Z51.81 Encounter for therapeutic drug level monitoring (principal) | CPT/HCPCS: 36415; 80164 ==